=== PATIENT | female | born 1980 | race Caucasian/White ===

== ENCOUNTER → 2019-01-14 15:11 | Outpatient (CLI) | payer BC, MEDICAID, SELFPAY ==
--- NOTE | 2019-01-14 15:57 | US_ITS ---
MM Dig mamm BI DX w/CAD, US breast RT complete INDICATION: Palpable abnormality of the right breast in the medial periareolar region. ORDERING PHYSICIAN: [facility] PATIENT AGE: 38 years COMPARISON: None TECHNIQUE: Standard images performed along with spot compression views of the right breast and right breast ultrasound FINDINGS: There is very dense fibroglandular tissue bilaterally which decreases the sensitivity of mammography. No malignant appearing mass or malignant appearing microcalcification is evident. There are small nodes in the right axilla. Punctate small densities are noted in the right axilla and are likely related to deodorant/talc artifact. These were not noted at the time of the diagnostic mammogram. Recommend repeating right MLO view at no additional charge for confirmation. In the deep aspect of the right breast there is a 2.4 mm nodular opacity which may be due to asymmetric fibroglandular tissue. Spot compression view suggested. Asymmetric density also noted in the left axillary region probably related to axillary fibroglandular tissue. Suggest spot compression views. The palpable abnormalities reported in the medial periareolar region on the right. No mammographic abnormality evident at this area. Right breast ultrasound: There is a 6 x 5 mm cyst at the 12:00 region of the right breast. In addition there is a 5 x 4 mm cyst at 2:00.. IMPRESSION: Probably benign findings. Suspect talc artifact in the right axilla and asymmetric fibroglandular tissue in the deep right breast on the cc view and in the left axilla. Recommend spot compression views of the right and left breast as well as repeat right MLO too confirm artifact. Charge and an addendum will be added. The palpable abnormality of the right breast likely corresponds to a 5 mm cyst BI-RADS Category: 0 Need Additional Imaging Evaluation RECOMMENDED FOLLOW-UP: IMM - IMMEDIATE FOLLOW-UP RECOMMENDED (A letter has been sent to the patient regarding results of the study.)
== END ==
PROVIDERS: PCP Family Medicine
DX: N63.11 Unspecified lump in the right breast, upper outer quadrant (principal)
CPT/HCPCS: 76641; 77066

== ENCOUNTER → 2019-02-03 14:45 | Outpatient (CLI) | payer BC, MEDICAID, SELFPAY ==
--- NOTE | 2019-02-03 15:20 | MM_ITS ---
Repeat Views MM see previous report for diagnostic mamm 01/14/19 The patient was asked to return for additional imaging due to possible metallic artifact in the axilla. Additional images are performed. There are persistent numerous small hyperdensities in the axillary region suggesting dermal calcifications.. The small nodular opacity deep in the right breast is not redemonstrated on the spot compression view. The asymmetric density in the axillary region of the left breast is once again noted on the spot compression MLO view but not on the exaggerated cc view and may be due to overlying fibroglandular tissue. Three-month follow-up recommended. IMPRESSION: Probably benign findings. BI-RADS Category 3, probably benign Recommend 3 month follow-up
== END ==
PROVIDERS: PCP Family Medicine; Visit Provider Nurse Practitioner Obstetrics & Gynecology
DX: N63.10 Unspecified lump in the right breast, unspecified quadrant (principal)

== ENCOUNTER → 2019-04-18 12:59 | Outpatient (CLI) | payer BC, MEDICAID, SELFPAY ==
--- NOTE | 2019-04-18 13:01 | US_ITS ---
PROCEDURE: MM DIG MAMM BI DX W/CAD CLINICAL INDICATION: 3 mo fu COMPARISON: DXBI MM Dig mamm BI DX w/CAD from 01/14/2019 BREASTRT US breast RT complete from 01/14/2019 DIG MAMM-DX UZMA from 02/03/2019 US BREAST RT COMPLETE from 04/18/2019 TECHNIQUE: Standard CC and MLO images were obtained. R2 CAD reviewed. FINDINGS: There is dense fibroglandular tissue decreasing the sensitivity of mammography. No malignant appearing mass or malignant-appearing microcalcification is evident. There are scattered areas of asymmetry which are felt to be due to fibroglandular tissue. Previously there were faint calcifications in the axilla which are not apparent on today's exam. Previously noted area of asymmetric density in upper aspect of the left breast is not apparent on spot compression view. There was some asymmetric density in the posterior aspect of the right breast which did appear to compress out. A similar density noted in the medial aspect of the right breast which appear to compress out. An area of asymmetry is present in the medial aspect of the left breast probably due to overlapping fibroglandular tissue and incomplete compression. Right breast ultrasound: The hypoechoic nodular area at 2 o'clock at 7 mm and may be due to fibroglandular tissue or a complex cyst. There is a 4 mm cyst at 11 o'clock. No suspicious lesions evident. Palpable areas reported at 10 o'clock. No sonographic abnormalities are evident at this region. The hypoechoic area at 2 o'clock is not significantly changed Recommend continued six-month bilateral mammographic and right sonographic follow-up IMPRESSION: BI-RAD Category: 3 Probably Benign Finding Short Term Follow-up FOLLOW-UP: 6M 6Month Follow-up Negative mammogram and negative ultrasound does not exclude the possibility of malignancy. If there is indeed a palpable nodule then, it should be managed on clinical basis. (A letter has been sent to the patient regarding results of the study.) Dictated by: Ajith Ellis MD 04/22/2019 11:25 Electronically signed by Ajith Ellis MD in [place] 04/22/2019 11:25
== END ==
PROVIDERS: PCP Family Medicine; Visit Provider Surgery
DX: N60.01 Solitary cyst of right breast (principal)
CPT/HCPCS: 76641; 77066

== ENCOUNTER 2023-04-13 18:11 | Emergency (ER) | payer BC, SELFPAY ==
[2023-04-13 18:35] VITALS: BP 142/76; PULSE 124; RESP 18; TEMP 38.7; O2SAT 98; BMI 25.0
--- NOTE | 2023-04-13 18:38 | EXP.UTC ---
Discharge Plan Disposition Patient Disposition: Home Health Service Condition: Good Prescriptions Prescriptions: New prednisone 10 mg tablet 10 mg PO BID 5 Days Qty: 10 0RF azithromycin [Zithromax] 250 mg tablet 250 mg PO UD DOSE PK Qty: 6 0RF Rx Instructions: Take two (2) tablets today, then one (1) tablet days #2 thru #5 ondansetron 4 mg Tablet,Disintegrating 4 mg PO Q8H PRN (Reason: Nausea) Qty: 12 0RF No Action buprenorphine-naloxone 8-2 mg tablet, sublingual 2 tab SUBLINGUAL DAILY Referrals Follow up/Referrals: Raj Payne [Primary Care Provider] - See instructions Activity Restrictions/Add. Instructions Additional Instructions/Restrictions: Drink plenty of fluids. Take tylenol or ibuprofen for pain or fever. Take the medications as directed. Follow up with your regular doctor. GO TO THE ER FOR ANY WORSENING SYMPTOMS Clinical Impressions Clinical Impression: Pharyngitis, Acute viral syndrome, Exposure to 2019 novel coronavirus Stand Alone Forms Stand Alone Forms: Work/School Release Instructions Patient Instructions: Coronavirus Disease 2019, Preventing the Spread of Coronavirus Discharge Instructions Discharge ED Provider: Brayan Anderson [facility] [place] HPI General Stated complaint: exposed to covid, symptoms Time Seen by Provider: 04/13/23 18:30 History of Present Illness Provider Complaint: She states that for the past 3 days she has had sore throat, malaise, cough, and chills. Related Data Home Medications Medication Instructions Recorded Confirmed buprenorphine 8 mg-naloxone 2 mg 2 tab sublingual DAILY 02/14/19 05/02/19 sublingual tablet Previous Rx's Medication Instructions Recorded azithromycin 250 mg tablet 250 mg PO UD DOSE PK #6 tabs 04/13/23 (Zithromax) ondansetron 4 mg disintegrating 4 mg PO Q8H PRN Nausea #12 tabs 04/13/23 tablet prednisone 10 mg tablet 10 mg PO BID 5 days #10 tabs 04/13/23 Allergies Allergy/AdvReac Type Severity Reaction Status Date / Time No Known Allergies Allergy Verified 04/13/23 18:35 [facility] Disclaimer: The information contained in this section may have been updated after the patient was seen, as this information can be updated by other users. Social History Smoking Status: Current every day smoker tobacco type: cigarettes and e-cigarettes alcohol intake: never substance use type: former substance user current occupational status: unemployed Travel in the last 8 weeks: None household members: family housing: house ROS Obtained: Yes All systems reviewed & no additional complaints except as documented Constitutional Constitutional: Reports chills and Reports fever(s) Eyes Eyes: Denies eye discharge ENT Ears, Nose, Mouth, and Throat: Reports as per HPI Cardiovascular Cardiovascular: Denies chest pain Respiratory Respiratory: Denies chest congestion and Reports cough Gastrointestinal Gastrointestingal: Reports nausea; Denies abdominal pain, constipation, cramping, diarrhea or vomiting Musculoskeletal Musculoskeletal: Denies arthralgias Integumentary/Breasts Skin/Breast: Denies rash Neurologic Neurologic: Denies paresthesias Physical Exam General General appearance: alert and in no apparent distress Head Head exam: atraumatic, normocephalic and normal inspection Eye Eye exam: Present normal appearance, PERRL and EOMI ENT ENT exam: Present mucous membranes moist and normal external ear exam Expanded ENT Exam TM/Canal exam: Bilateral TM: erythema and bulging Nose exam: Absent sinus tenderness Mouth exam: Present normal external inspection; Absent drooling Teeth exam: Present normal inspection Throat exam: Present tonsillar erythema, tonsillomegaly and tonsillar exudate Neck Neck exam: Present normal inspection, full ROM and trachea midline; Absent tenderness, meningismus or lymphadenopathy Chest Chest inspection: Present normal inspection and symmetric chest wall rise;
[2023-04-13 18:59] LABS: UTC Strep Screen (Rapid) Negative (Negative)
[2023-04-13 19:07] VITALS: BP 142/76; PULSE 120; RESP 16; TEMP 38.7
== END 2023-04-13 19:08 | disposition home health service (06) ==
PROVIDERS: Emergency Provider Nurse Practitioner Family; PCP Family Medicine
DX: J02.9 Acute pharyngitis, unspecified (principal); R50.9 Fever, unspecified; R53.81 Other malaise; B34.9 Viral infection, unspecified; F17.210 Nicotine dependence, cigarettes, uncomplicated; Z20.822 Contact with and (suspected) exposure to COVID-19
CPT/HCPCS: 87880; 99204; 99212; G0463